=== PATIENT | female | born 1960 | race Caucasian/White ===

== ENCOUNTER → 2017-12-27 | Outpatient (CLI) | payer OTHER ==
[~2017-12-27] MED LIST: ALBU90OI61 INH; AZIT250 PO; CEPH500 PO; CODACE60 PO; CODGUAEL PO; Cyclobenzaprine5 MG PO; ESCI10 PO; FLUSAL2505; LEVSOD75 PO; LEVSOD88 PO; METF500; MONT4 PO; NYST100P; Naprosyn500 MG PO; Norco 5-325 Ta1 EACH PO; ONDA4 PO; OXYB5; PRED20 PO; PROCODE120 PO; Prednisone20 MG PO; RANI150 PO; RXCODGUASY PO; SULTRIDS PO; TRAM50 PO; TRAZ50 PO; Valium5 MG PO; Zofran Odt4 MG SL
[2017-12-29 12:12] LABS: HPV Genotype 16 Not Detected (NOTDET); HPV Genotype 18 Not Detected (NOTDET)
[2018-01-04 08:53] LABS: HPV High Risk Other Not Detected (NOTDET)
== END ==
LOC: LAB 17:48
PROVIDERS: Registered Nurse
DX: Z12.4 Encounter for screening for malignant neoplasm of cervix (principal)
CPT/HCPCS: 87624; G0123

== ENCOUNTER 2022-06-28 15:31 | Emergency (ER) | payer OTHER ==
[~2022-06-28] VITALS: Ht 154.9 cm; Wt 86.6 kg
[~2022-06-28 15:31] MED LIST changes: +Carafate1 GM/10 ML PO
[2022-06-28] MEDS ORDERED: SULTRIDS PO (17:40)
== END 2022-06-28 17:59 | disposition home or self-care (01) ==
LOC: ER 15:31
DX: I87.2 Venous insufficiency (chronic) (peripheral) (principal); L03.115 Cellulitis of right lower limb; E11.9 Type 2 diabetes mellitus without complications; J44.9 Chronic obstructive pulmonary disease, unspecified; Z87.891 Personal history of nicotine dependence; Z79.899 Other long term (current) drug therapy; Z79.84 Long term (current) use of oral hypoglycemic drugs; Z88.6 Allergy status to analgesic agent; Z88.0 Allergy status to penicillin; Z88.8 Allergy status to other drugs, medicaments and biological substances
CPT/HCPCS: 99283

== ENCOUNTER → 2022-07-15 | Outpatient (CLI) | payer OTHER ==
[2022-07-15 10:59] LABS: BASOPHILS ABSOLUTE AUTO 0.09 K/mm3 (0.00-0.23); BASOPHILS PERCENT AUTO 1 % (0-2); EOSINOPHILS PERCENT AUTO 6 % (0-6); Hematocrit 44.4 % (33.0-51.0); Hemoglobin 14.4 g/dL (11.5-16.0); IMMATURE GRAN ABSOLUTE AUTO 0.05 K/mm3 (0.00-0.10); IMMATURE GRAN PERCENT AUTO 1 % (0-1); LYMPHOCYTES ABSOLUTE AUTO 1.32 K/mm3 (0.84-5.20); LYMPHOCYTES PERCENT AUTO 20 % (21-46); MONOCYTES ABSOLUTE AUTO 0.54 K/mm3 (0.16-1.47); MONOCYTES PERCENT AUTO 8 % (4-13); Mean Corpuscular HGB 28.9 pg (26.0-34.0); Mean Corpuscular HGB Conc 32.4 g/dL (31.5-36.5); Mean Corpuscular Volume 89 fL (80-100); NEUTROPHILS ABSOLUTE AUTO 4.34 K/mm3 (1.96-9.15); NEUTROPHILS PERCENT AUTO 65 % (41-73); Platelet Count 181 K/mm3 (150-400); RDW Coefficient Variation 14.1 % (11.7-14.2); RDW Standard Deviation 45.8 fL (35.1-46.3); Red Blood Cell Count 4.98 M/mm3 (3.80-5.20); White Blood Cell Count 6.74 K/mm3 (4.00-11.30)
[2022-07-15 11:09] LABS: Albumin, Blood 3.3 g/dL (3.4-5.0); Albumin/Globulin Ratio 0.9 (0.8-1.8); Bilirubin, Total 0.4 mg/dL (0.1-1.0); Bun/Creatinine Ratio 13.9 (12.0-20.0); Calcium, Blood 8.7 mg/dL (8.5-10.1); Creatinine, Blood 0.79 mg/dL (0.40-1.00); Globulin, Blood 3.7 g/dL (2.2-4.0)
== END | disposition home or self-care (01) ==
LOC: LAB 10:51 → LAB SHORT 10:51
PROVIDERS: Physician Assistant
DX: I87.2 Venous insufficiency (chronic) (peripheral) (principal)
CPT/HCPCS: 80053; 85025

== ENCOUNTER 2023-04-26 07:51 | Day surgery (SDC) | payer OTHER ==
[~2023-04-26] VITALS: Ht 157.5 cm; Wt 129.2 kg
[~2023-04-26 07:51] MED LIST changes: +ABILIFY MYCITE10 M2 PO; +ATOR10 PO; +BENZ1 PO; +BUPR150ER PO; +Benztropine Me0.5 MG PO; +CEFD300 PO; +LEVSOD100 PO; +TERBINAFINE15 GM TOP; +TOPI100 PO; +VISBIOME 112.51 EACH PO
[2023-04-26] MEDS ORDERED: ACYC400 (08:28)
[2023-04-26] MEDS ORDERED: ALBU90OI (08:29)
[2023-04-26] MEDS ORDERED: Pulmicort Fle180 MCG (08:29)
[2023-04-26] MEDS ORDERED: GABA100 (08:29)
[2023-04-26] MEDS ORDERED: MELA3 (08:30)
--- NOTE | 2023-04-26 09:32 | NUR ---
04/26/23 0932 ALEJA MOERNO PT MOVES LEGS FREQUENTLY- HX OF PERIODIC LIMB MOVEMENT. ORAL AIRWAY PLACED BY DR. DE SOUZA. PT DOING WELL.
[2023-04-26 10:31] VITALS: BP 127/77
== END 2023-04-26 10:25 | disposition home or self-care (01) ==
LOC: ORSCSDS 07:51
PROVIDERS: Student in an Organized Health Care Education/Training Program
PROC: 0DBM8ZX Excision of Descending Colon, Via Natural or Artificial Opening Endoscopic, Diagnostic (ICD-10-PCS; principal; 2023-04-26 09:15)
PROC: 0DBN8ZX Excision of Sigmoid Colon, Via Natural or Artificial Opening Endoscopic, Diagnostic (ICD-10-PCS; principal; 2023-04-26 09:15)
PROC: 0DBP8ZX Excision of Rectum, Via Natural or Artificial Opening Endoscopic, Diagnostic (ICD-10-PCS; principal; 2023-04-26 09:15)
DX: Z12.11 Encounter for screening for malignant neoplasm of colon (principal); Z80.0 Family history of malignant neoplasm of digestive organs; K63.5 Polyp of colon; K62.1 Rectal polyp; J45.909 Unspecified asthma, uncomplicated; E11.9 Type 2 diabetes mellitus without complications; E03.9 Hypothyroidism, unspecified; G47.33 Obstructive sleep apnea (adult) (pediatric); Z87.891 Personal history of nicotine dependence; E66.01 Morbid (severe) obesity due to excess calories; Z68.43 Body mass index [BMI] 50.0-59.9, adult; F32.A Depression, unspecified; Z79.899 Other long term (current) drug therapy
CPT/HCPCS: 82947; 88305; J2704; J7120